=== PATIENT | female | born 1930 | race African-American/Black ===

== ENCOUNTER 2020-07-19 12:04 | Emergency (ER) | payer OTHER ==
[~2020-07-19] VITALS: Ht 162.6 cm; Wt 65.0 kg
[~2020-07-19 12:04] MED LIST: LISI40TA4; NABUMETONE; NIFE60TA18; POTA10CA42; VIC
[2020-07-19 13:21] LABS: BASOPHILS % 0.5 % (0.0-2.0); EOSINOPHILS % 0.9 % (0.0-5.0); HEMOGLOBIN. 13.2 g/dL (12.0-16.0); LYMPHOCYTES % 30.8 % (20.0-50.0); MEAN CORPUSCULAR HEMOGLOBIN 26.9 pg (28.0-32.0); MEAN CORPUSCULAR VOLUME 81.6 fL (81.0-99.0); MEAN PLATELET VOLUME 8.8 fl (7.4-10.4); NEUTROPHILS % 57.8 % (40.0-76.0); PLATELET 222 x1000/uL (130-400); RED CELL DISTRIBUTION WIDTH 14.8 % (11.6-14.6)
[2020-07-19 13:28] LABS: CHLORIDE 103 mEq/L (98-107)
[2020-07-19 13:33] LABS: ETHANOL BLOOD < 10 mg/dL
[2020-07-19 13:40] LABS: CREATINE KINASE 85 IU/L (26-192); PHENOBARBITAL < 2.1 ug/mL (15.0-40.0)
[2020-07-19 13:50] LABS: CARBAMAZEPINE < 0.5 ug/mL (4-12)
[2020-07-19 13:53] LABS: VALPROIC ACID < 3.0 ug/mL (50-100)
[2020-07-19] MEDS ORDERED: KCL 10MEQ/50ML PREMIX 100 ML IV SCH (15:30)
[2020-07-19] MEDS ORDERED: POTASSIUM CHLORIDE 20MEQ TABLET SR PO ONE (15:30)
[2020-07-19 16:35] VITALS: BP 136/86
== END 2020-07-19 17:59 | disposition short-term general hospital (02) ==
LOC: ER 12:04 → CANBEDREQ 19:44
DX: R41.82 Altered mental status, unspecified (principal); E87.6 Hypokalemia; I10 Essential (primary) hypertension; J81.1 Chronic pulmonary edema; Z79.899 Other long term (current) drug therapy
CPT/HCPCS: 36415; 70450; 71045; 80053; 80156; 80165; 80184; 80185; 80320; 82550; 84484; 85025; 93005; 96365; 99285; J3480; G0480

== ENCOUNTER 2020-10-22 14:36 | Emergency (ER) | payer OTHER, MEDICARE ==
[~2020-10-22] VITALS: Ht 167.6 cm; Wt 54.0 kg
[2020-10-22] MEDS ORDERED: SODIUM CHLORIDE 0.9% 1,000 ML IV ONE (15:00)
[2020-10-22 16:10] LABS: BASOPHILS % 0.6 % (0.0-2.0); EOSINOPHILS % 0.7 % (0.0-5.0); HEMATOCRIT. 32.6 % (36.0-48.0); HEMOGLOBIN. 10.7 g/dL (12.0-16.0); LYMPHOCYTES % 26.2 % (20.0-50.0); MEAN CORPUSCULAR HEMOGLOBIN 27.2 pg (28.0-32.0); MEAN CORPUSCULAR VOLUME 82.8 fL (81.0-99.0); MEAN PLATELET VOLUME 8.8 fl (7.4-10.4); MONOCYTES % 13.5 % (2.0-8.0); PLATELET 198 x1000/uL (130-400); RED BLOOD CELL COUNT 3.94 mill/uL (4.2-5.4)
[2020-10-22 16:14] LABS: CHLORIDE 113 mEq/L (98-107)
[2020-10-22 16:19] LABS: INR 1.1; PROTHROMBIN TIME 11.6 sec (9.6-11.0)
[2020-10-22 16:59] LABS: CLARITY URINE CLOUDY (CLEAR); COLOR URINE YELLOW (YELLOW); KETONES URINE NEGATIVE (NEGATIVE); LEUKOCYTE ESTERASE URINE TRACE (NEGATIVE); NITRITE URINE NEGATIVE (NEGATIVE); OCCULT BLOOD URINE NEGATIVE (NEGATIVE); PROTEIN URINE NEGATIVE (NEGATIVE); SPECIFIC GRAVITY URINE 1.012 (1.005-1.030)
[2020-10-22 17:20] VITALS: BP 127/55
== END 2020-10-22 19:00 | disposition home or self-care (01) ==
LOC: ER 15:06
DX: R42 Dizziness and giddiness (principal); R55 Syncope and collapse; I10 Essential (primary) hypertension; Z88.2 Allergy status to sulfonamides
CPT/HCPCS: 36415; 71045; 80053; 81003; 84484; 85025; 96360; 99284